=== PATIENT | male | born 1980 | race Caucasian/White ===

== ENCOUNTER 2020-08-15 15:21 | Emergency (ER) | payer OTHER, SELFPAY ==
--- NOTE | 2020-08-15 15:25 | ED.EXTPRO ---
HPI - Extremity Problem General Chief complaint: Extremity Problem,Nontraumatic Stated complaint: infection under fingernail Time Seen by Provider: 08/15/20 15:25 Source: patient and RN notes reviewed Mode of arrival: ambulatory History of Present Illness HPI Narrative: This is a 40-year-old male that presented to urgent care today with redness, swelling in tenderness to the right ring finger. According to patient he was playing basketball with his son's on when his finger went backwards and he notes his fingernail shagged on something. He did go to his employees doctor today who prescribed him with Keflex. He is here to our facility today because he noticed his finger is sore and he types a lot at work. He was wondering if this I needed an I&D. There is no visible fluid at site and the does not warrant an I&D. Instructed the patient to get the prescription refilled, soak the finger and apply A&E ointment to open area on the side of the nailbed. Prescribed patient topical lidocaine to numb the pain. The patient denies SOB, CP, palpitation, extremity numbness, lightheadedness, dizziness, constipation, drainage from site, positive for sensation, pulses present, no apparent intact, diarrhea, chills, or fever. MD Complaint: extremity pain (Right ring finger) Related Data Home Medications Medication Instructions Recorded Confirmed amlodipine 10 mg DAILY 08/15/20 08/15/20 pantoprazole 40 mg PO DAILY 08/15/20 08/15/20 perindopril erbumine 4 mg DAILY 08/15/20 08/15/20 Allergies Allergy/AdvReac Type Severity Reaction Status Date / Time erythromycin base Allergy Unknown Verified 03/11/12 13:36 Review of Systems Review of Systems: Narrative: A 14 organ system Review of Systems was performed and pertinent positives included in the HPI, otherwise remaining ROS is negative. [facility], LAT[facility] Family History Family History (Updated 08/15/20 @ 15:51 by OLIVER Rossi) Other Family history non-contributory Social History Social History Gender identity (if verbalized by the patient): Male Exam Narrative: Exam Narrative: GENERAL: This is a well-nourished, well-developed patient, in no apparent distress. HEAD: normocephalic, atraumatic. EYES: PERRL. Sclera clear/white. Vision is grossly intact. EARS: External ears normal, auditory canals clear and without drainage, TMs normal without perforation. Hearing grossly intact. NOSE: External nose normal with no obvious nasal discharge, nares without redness, no rhinorrhea. THROAT: Mucous membranes moist, posterior pharynx clear. NECK: Neck supple, non-tender without lymphadenopathy, masses or thyromegaly. CARDIOVASCULAR: Regular rate and rhythm without murmurs, gallops, or rubs. RESPIRATORY: Clear to auscultation. Breath sounds equal bilaterally. No wheezes, rales, or rhonchi. GASTROINTESTINAL: Abdomen soft, non-tender, nondistended. Bowel sounds are active. No hepato-splenomegaly, or palpable masses. No guarding. SKIN: warm, intact with no suspicious lesions or rash, good texture and turgor. NEURO: awake, alert, and oriented to person, place and time. There were no obvious focal neurologic abnormalities. Steady gait EXTREMITIES: Normal range of motion. Positive for sensation. Warm to touch, right ring finger erythema with erythematous. No calf tenderness. Negative Homans sign bilaterally. BACK: Nontender without deformity or crepitance. No flank tenderness. Course Vital Signs Vital signs: Vital Signs Temperature 97.7 F 08/15/20 15:34 Pulse Rate 80 08/15/20 15:34 Respiratory Rate 20 08/15/20 15:34 Blood Pressure 141/87 H 08/15/20 15:34 Pulse Oximetry 99 08/15/20 15:34 Temperature 97.7 F 08/15/20 15:34 Pulse Rate 80 08/15/20 15:34 Respiratory Rate 20 08/15/20 15:34 Blood Pressure 141/87 H 08/15/20 15:34 Pulse Oximetry 99 08/15/20 15:34 Discharge Plan Discharge Clinical Impression: Cellulitis Qualifiers: Site of cellulitis: extr
[2020-08-15 15:34] VITALS: BP 141/87; PULSE 80; RESP 20; TEMP 36.5; O2SAT 99
== END 2020-08-15 15:46 | disposition home or self-care (01) ==
LOC: EXPTROY 15:26
PROVIDERS: Emergency Provider Nurse Practitioner; PCP Internal Medicine
DX: L03.011 Cellulitis of right finger (principal)
CPT/HCPCS: 99213; G0463

== ENCOUNTER 2024-02-21 11:03 | Emergency (ER) | payer OTHER, SELFPAY ==
[2024-02-21 11:19] VITALS: BP 135/79; PULSE 91; RESP 18; TEMP 36.8; O2SAT 99
--- NOTE | 2024-02-21 12:14 | ED_ITS ---
HPI - URI/Sore Throat General Chief Complaint: Upper Respiratory Infection Stated Complaint: cough Time Seen by Provider: 02/21/24 12:14 Source: patient, RN notes reviewed and old records reviewed Mode of arrival: ambulatory Limitations: no limitations History of Present Illness HPI Narrative: patient presents with complaints of sinus pain and congestion, cough. He reports that he has been taking amoxicillin per his prescriber's instructions for 3 days. He reports that symptoms are worsening instead of getting better. He states that he did not have visit, prescription was called in for him. He is not sure exactly what is being treated. He does report that he has multiple sick children at home, some with a community-acquired pneumonia. He reports that cough is becoming increasingly productive. He denies any shortness of breath. He has not been taking [id number] medications. No other concerns or complaints at this Related Data Home Medications ?Medication ?Instructions ?Recorded ?Confirmed ?Last Taken ?Type amlodipine 10 mg tablet 10 mg DAILY 08/15/20 08/15/20 Unknown History pantoprazole 40 mg tablet,delayed 40 mg PO DAILY 08/15/20 08/15/20 Unknown History release perindopril erbumine 4 mg tablet 4 mg DAILY 08/15/20 08/15/20 Unknown History amoxicillin 500 mg capsule mg 02/21/24 Unknown History Allergies Allergy/AdvReac Type Severity Reaction Status Date / Time erythromycin base AdvReac Unknown Gastrointestinal Verified 02/21/24 11:35 Upset Review of Systems Review of Systems: All systems reviewed & are unremarkable except as noted in HPI and below Constitutional: Constitutional: Reports no additional constitutional complaints, Reports headache(s) and Reports lethargy ENT: Reports system reviewed and no additional complaints, except as documented, Reports nasal congestion, Reports nasal discharge, Reports sinus pain, Reports sinus pressure and Reports sore throat Cardiovascular: Cardiovascular: Reports no additional cardiovascular complaints Respiratory: Respiratory: Reports no additional respiratory complaints, Reports chest congestion, Reports cough and Reports excessive phlegm production Gastrointestinal: Gastrointestinal: Reports no additional gastrointestinal complaints [facility] Family History Family History (Updated 08/15/20 @ 15:51 by OLIVER Rossi) Other Family history non-contributory Social History Social History Gender identity (if verbalized by the patient): Male Comments At the time of my signature, I reviewed and agree with the nursing past medical, surgical, social, and family history. There is no relevant family history pertinent to the patient complaint. Exam Const: General: cooperative, no acute distress, alert and awake Orientation/consciousness: oriented to person, oriented to place and oriented to time HENMT: Head: normal to inspection Ears: TM abnormal dull bilateral Face/Nose/Sinus: sinus tenderness Mouth: Yes moist mucous membranes Throat: posterior oropharynx abnormal erythema Resp: Effort & Inspection: normal respiratory effort and able to speak in complete sentences Auscultation: clear to auscultation bilaterally, no crackles, no rales, no rhonchi and no wheezes Cardio: Palpation: normal PMI Rate: regular rate Rhythm: regular rhythm Heart sounds: S1 normal heart sound present and S2 normal heart sound present Neuro: General: oriented to person, oriented to place and oriented to time Cranial nerves: Yes CN's II-XII intact bilaterally Psych: Appearance: grossly normal Thought process: Normal thought process present Insight: Good insight present (Psych) Judgement: Good judgement present (Psych) Course Course Level of Care: Express Care Visit Vital Signs Vital signs: Vital Signs Temperature 98.3 F 02/21/24 11:19 Pulse Rate 91 02/21/24 11:19 Respiratory Rate 18 02/21/24 11:19 Blood Pressure 135/79 02/21/24 11:19 Pulse Oximetry 99 02/21/24 11:19 Oxygen Delivery Room Air 02/21/24 11:19 Temperature 98.3 F 02/21/24 11:19 Pulse Rate 91 02/21/24 11:19 Respiratory Rate 18 02/21/24 11:19 Blood Pressure 135/79 02/21/24 11:19 Pulse Oximetry 99 02/21/24 11:19 Oxygen Delivery Room Air 02/21/24 11:19 Reviewed MDM - URI/Sore Throat MDM Narrative Medical decision making narrative: patient with multiple sick contacts at home, getting worse instead of better on amoxicillin. Start doxycycline. Follow with primary care provider. Emergency department for new or worse symptoms. Discharge instructions reviewed with patient, as well as provided in writing per nursing staff. The instructions also include specific and strict return/GO TO THE ER as well as f/u information. All questions have been answered, and the patient deny any further questions with discharge and discharge plan. Some parts of this dictation were generated by voice recognition software and may contain typographical and/or grammatical inaccuracies. Differential Diagnosis Differential diagnosis: Likely upper respiratory infection, otitis media, sinusitis, viral infection, bronchitis and pharyngitis Medical Records Attestation: I reviewed the patient's medical records. Discharge Plan Discharge Clinical Impression: Sinusitis Qualifiers: Sinusitis location: frontal Chronicity: acute Recurrence: not specified as recurrent Qualified Code(s): J01.10 - Acute frontal sinusitis, unspecified Patient Disposition: Home, Self-Care Condition: Stable Instructions: Antibiotic Form, Sinusitis (ED) Additional Instructions: Take medications as prescribed. Follow with primary care provider. Emergency department for any new or worsening symptoms. Stop amoxicillin Patient Language: Chinese Prescriptions: New doxycycline hyclate 100 mg capsule 100 mg PO BID Qty: 20 0RF prednisone 50 mg tablet 50 mg PO DAILY Qty: 5 0RF No Action perindopril erbumine 4 mg tablet 4 mg DAILY amlodipine 10 mg tablet 10 mg DAILY pantoprazole 40 mg tablet,delayed release (DR/EC) 40 mg PO DAILY amoxicillin 500 mg capsule Follow-up/Referrals: UNKNOWN,DOCTOR [Primary Care Provider] -
== END 2024-02-21 12:40 | disposition home or self-care (01) ==
PROVIDERS: Emergency Provider Nurse Practitioner Family
DX: J01.10 Acute frontal sinusitis, unspecified (principal)
CPT/HCPCS: 99213; G0463

== ENCOUNTER 2024-08-22 17:00 | Emergency (ER) | payer OTHER, SELFPAY ==
--- NOTE | 2024-08-22 17:01 | ED_ITS ---
HPI - General Adult General Chief complaint: Chest Pain Stated complaint: heart irritation Time Seen by Provider: 08/22/24 17:01 Source: patient, RN notes reviewed and old records reviewed Mode of arrival: ambulatory Limitations: no limitations History of Present Illness HPI narrative: 44-year-old male presents to the [facility] with concerns for his heart racing, skipping a beat with associated shortness of breath. Patient has history of high blood pressure and high cholesterol. Patient reports that he was sitting in [place] and symptoms started approximately 20 minutes prior to arrival Denies any vomiting. Denies nausea. Denies any new anxiety. Onset (ago): minute(s) (20) Treatments prior to arrival: none Related Data Home Medications ?Medication ?Instructions ?Recorded ?Confirmed ?Last Taken ?Type amlodipine 10 mg tablet 10 mg DAILY 08/15/20 08/15/20 Unknown History perindopril erbumine 4 mg tablet 4 mg DAILY 08/15/20 08/15/20 Unknown History rosuvastatin 10 mg tablet mg 08/22/24 Unknown History Allergies Allergy/AdvReac Type Severity Reaction Status Date / Time azithromycin AdvReac Mild Nausea and Verified 08/22/24 17:42 Vomiting erythromycin base AdvReac Unknown Gastrointestinal Verified 08/22/24 17:42 Upset Review of Systems Review of Systems: All systems reviewed & are unremarkable except as noted in HPI and below Constitutional: Constitutional: Reports no additional constitutional complaints ENT: Reports system reviewed and no additional complaints, except as documented Cardiovascular: Cardiovascular: Reports as per HPI, Denies chest pain, Reports diaphoresis, Reports rapid heart rate, Denies leg edema, Denies radiating jaw, neck or arm pain, Reports palpitations and Reports dyspnea Respiratory: Respiratory: Reports as per HPI, Denies chest congestion, Denies cough and Reports dyspnea Musculoskeletal: Musculoskeletal: Reports no additional musculoskeletal complaints Integumentary/Breasts: Skin/Breast: Reports system reviewed and no additional complaints, except as docu [facility] Past Medical History Medical History (Updated 08/22/24 @ 19:05 by Иван Carrasco MD) History of high cholesterol History of high blood pressure Family History Family History Other Family history non-contributory Social History Social History Gender identity (if verbalized by the patient): Male Comments At the time of my signature, I reviewed and agree with the nursing past medical, surgical, social, and family history. There is no relevant family history pertinent to the patient complaint. Exam Const: General: cooperative, healthy appearing, comfortable, no acute distress, well developed, alert and well nourished Nutritional Appearance: well nourished Orientation/consciousness: patient oriented x3 Limitations: no limitations HENMT: Head: normal to inspection Mouth: Yes Normal oral and palatal mucosa present, Yes lip normal, Yes tongue normal and Yes moist mucous membranes Eyes: General: appearance normal, both eyes and all related structures Alignment and Position: alignment normal Neck: Neck: normal visual inspection, full ROM, no lymphadenopathy and no meningeal signs Chest: Chest palpation & inspection: normal inspection of the chest Resp: Effort & Inspection: normal respiratory effort and able to speak in complete sentences Auscultation: clear to auscultation bilaterally, no crackles, no rales, no rhonchi and no wheezes Cardio: Rate: tachycardic Skin: General skin exam: normal color and no rashes or lesions noted Neuro: General: patient oriented x3, gait normal, moves all extremities and no meningeal signs Cognition (Neuro): normal cognition Speech: normal speech Gait exam (Neuro): Normal gait present Extrem: General: normal to inspection, full ROM, capillary refill normal and normal gait Psych: Appearance: grossly normal and well kempt Mental Status: mental status grossly normal Speech and movement: Normal speech and movement present and Clear speech present Affect: normal affect Attitude: cooperative Course Course Level of Care: Express Care Visit Vital Signs Vital signs: Vital Signs Temperature 97.8 F 08/22/24 17:09 Pulse Rate 101 H 08/22/24 17:09 Respiratory Rate 18 08/22/24 17:09 Blood Pressure 160/95 H 08/22/24 17:09 Pulse Oximetry 98 08/22/24 17:09 Oxygen Delivery Room Air 08/22/24 17:09 Temperature 97.8 F 08/22/24 17:09 Pulse Rate 101 H 08/22/24 17:09 Respiratory Rate 18 08/22/24 17:09 Blood Pressure 160/95 H 08/22/24 17:09 Pulse Oximetry 98 08/22/24 17:09 Oxygen Delivery Room Air 08/22/24 17:09 Reviewed Transfer Transfered to: [facility] Transportation: Other (POV, patient declined EMS) Transfer rationale: Patient with elevated heart rate, states it feels like it is racing with skipping beats. Patient is tachycardic in clinic Patient has a history of high blood pressure, high cholesterol Sending for higher level of care Accepting physician: Spoke with Dr. [place] Medical Decision Making MDM Narrative Medical decision making narrative: Patient presents with 20 minutes of heart racing, skipping beats, mildly diaphoretic. EKG sinus sinus tach. Blood glucose 108 Sending patient for further evaluation, testing and treatment Transfer instructions reviewed with patient and to go to the ER. EMS offered, patient declined, will drive All questions have been answered, and the patient deny any further questions. Some parts of this dictation were generated by voice recognition software and may contain typographical and/or grammatical inaccuracies. Differential Diagnosis Differential Diagnosis: Acute coronary syndrome, SVT, AFib, cardiac event, anxiety Medical Records Medical records reviewed: Yes I reviewed the external patient's medical records. Vital Signs Vital Signs: Vital Signs Temperature 97.8 F 08/22/24 17:09 Pulse Rate 101 H 08/22/24 17:09 Respiratory Rate 18 08/22/24 17:09 Blood Pressure 160/95 H 08/22/24 17:09 Pulse Oximetry 98 08/22/24 17:09 Oxygen Delivery Room Air 08/22/24 17:09 Temperature 97.8 F 08/22/24 17:09 Pulse Rate 101 H 08/22/24 17:09 Respiratory Rate 18 08/22/24 17:09 Blood Pressure 160/95 H 08/22/24 17:09 Pulse Oximetry 98 08/22/24 17:09 Oxygen Delivery Room Air 08/22/24 17:09 Reviewed Lab Data Lab results reviewed: Yes I reviewed the patient's lab results. Labs: Lab Results 08/22/24 Range/Units 17:11 POC Capillary Glucose 108 H (65-105) mg/dl Reviewed ECG Data EKG #1: Attestation: I personally reviewed and interpreted this ECG as follows: ECG completion date: 08/22/24 ECG completion time: 17:06 Prior ECG tracings: not available for review Interpretation: Sinus tachycardia, possible left atrial enlargement abnormal EKG, no ST elevation or depression noted. Ventricle rate 104, GA interval 140, QRS duration 107 Critical Care Time Critical Care Time Critical Care Time: No Discharge Plan Discharge Clinical Impression: Tachycardia, Shortness of breath Patient Disposition: Acute Care Hospital Condition: Stable Patient Language: Ug[place]an Prescriptions: No Action perindopril erbumine 4 mg tablet 4 mg DAILY amlodipine 10 mg tablet 10 mg DAILY rosuvastatin 10 mg tablet Follow-up/Referrals: UNKNOWN,DOCTOR [Primary Care Provider] -
--- NOTE | 2024-08-22 17:02 | ECG_ITS ---
Test Date: 2024-08-22 17:06:29 Measurements Intervals [place] Rate: 104 P: 33 [place]: 140 QRS: 23 QRSD: 107 T: 9 QT: 341 QTc: 450 Interpretive Statements SINUS TACHYCARDIA POSSIBLE LEFT ATRIAL ENLARGEMENT INCOMPLETE RIGHT BUNDLE BRANCH BLOCK CONSIDER INFERIOR INFARCT, AGE INDETERMINATE BASELINE ARTIFACT- I, II, III, AVR, AVL, AVF ABNORMAL ECG No previous ECG available for comparison Electronically Signed On 08-22-2024 20:23:47 CDT by Viet Rankin D.O.
[2024-08-22 17:09] VITALS: BP 160/95; PULSE 101; RESP 18; TEMP 36.6; O2SAT 98
[2024-08-22 17:13] LABS: Glucose Point of Care 108 mg/dl (65-105)
== END 2024-08-22 17:15 | disposition short-term general hospital (02) ==
PROVIDERS: Emergency Provider Nurse Practitioner
DX: R00.0 Tachycardia, unspecified (principal); R06.02 Shortness of breath; I10 Essential (primary) hypertension; E78.00 Pure hypercholesterolemia, unspecified
CPT/HCPCS: 82948; 93005; 99213; G0463

== ENCOUNTER 2024-08-22 17:28 | Emergency (ER) | payer OTHER, SELFPAY ==
[2024-08-22] VITALS (31 sets, daily range): BP systolic 120–165; BP diastolic 83–104; PULSE 67–99; RESP 14–22; TEMP 36.4–36.7; O2SAT 95–98
--- NOTE | 2024-08-22 17:47 | ECG_ITS ---
Test Date: 2024-08-22 18:08:17 Measurements Intervals [place] Rate: 77 P: 35 [place]: 182 QRS: 4 QRSD: 100 T: 0 QT: 383 QTc: 434 Interpretive Statements SINUS RHYTHM WITH OCCASIONAL SUPRAVENTRICULAR PREMATURE COMPLEXES POSSIBLE LEFT ATRIAL ENLARGEMENT BORDERLINE ST-T WAVE ABNORMALITY- INFERIOR LEADS BORDERLINE ECG Compared to ECG 08/22/2024 17:06:29 HEART RATE HAS DECREASED Electronically Signed On 08-22-2024 20:19:00 CDT by Viet Rankin D.O.
--- NOTE | 2024-08-22 18:03 | ED_ITS ---
HPI - General Adult General Chief complaint: Arrhythmia/Palpitations <Иван Carrasco MD - Last Filed: 08/22/24 19:05> Stated complaint: fast HR <Иван Carrasco MD - Last Filed: 08/22/24 19:05> Time Seen by Provider: 08/22/24 17:41 <Иван Carrasco MD - Last Filed: 08/22/24 19:05> History of Present Illness HPI narrative: This is a 44-year-old male presenting ED with chief complaint of palpitations. Patient was sitting in [facility] at 4:40 p.m. when he felt like his heart was skipping a beat. It would then speed up and go fast. During the episode he became short of breath. He did not have any chest pain. Symptoms resolved without intervention. On his watch said that his heart rate got up to 150 beats per minute. He is currently symptom free. Patient states that he drove from [place] straight through last week. He developed swelling of his left leg that resolved on its own. No history of PE or DVT. <Иван Carrasco MD - Last Filed: 08/22/24 19:05> Related Data Home medications: Home Medications ?Medication ?Instructions ?Recorded ?Confirmed ?Last Taken ?Type amlodipine 10 mg tablet 10 mg DAILY 08/15/20 08/15/20 Unknown History perindopril erbumine 4 mg tablet 4 mg DAILY 08/15/20 08/15/20 Unknown History rosuvastatin 10 mg tablet mg 08/22/24 Unknown History <Иван Carrasco MD - Last Filed: 08/22/24 19:05> Allergies/adverse reactions: Allergies Allergy/AdvReac Type Severity Reaction Status Date / Time azithromycin AdvReac Mild Nausea and Verified 08/22/24 17:42 Vomiting erythromycin base AdvReac Unknown Gastrointestinal Verified 08/22/24 17:42 Upset <Иван Carrasco MD - Last Filed: 08/22/24 19:05> [facility] Past Medical History Medical History: Medical History (Updated 08/22/24 @ 19:05 by Иван Carrasco MD) History of high cholesterol History of high blood pressure <Иван Carrasco MD - Last Filed: 08/22/24 19:05> Family History Family History: Family History Other Family history non-contributory <Иван Carrasco MD - Last Filed: 08/22/24 19:05> Social History Social History: Social History Gender identity (if verbalized by the patient): Male <Иван Carrasco MD - Last Filed: 08/22/24 19:05> Exam 2 Narrative: APPEARANCE: No apparent distress. Head: atraumatic. EYES: EOMI, NOSE: Atraumatic NECK: Trachea midline RESPIRATORY: No increased rate of breathing clear to auscultation CARDIOVASCULAR: RRR, no peripheral edema ABDOMINAL: Non-distended soft nontender MUSCULOSKELETAl: No obvious deformities NEURO: Alert. Moving 4/4 extremities SKIN:: Warm, dry. Normal color PSYCHIATRIC: Normal affect <Иван Carrasco MD - Last Filed: 08/22/24 19:05> Course Vital Signs Vital signs: Vital Signs Temperature 36.4 C L 08/22/24 17:34 Pulse Rate 99 08/22/24 17:34 Respiratory Rate 20 08/22/24 17:34 Blood Pressure 165/104 H 08/22/24 17:34 Pulse Oximetry 98 08/22/24 17:34 Oxygen Delivery Room Air 08/22/24 17:34 Temperature 36.7 C 08/22/24 17:39 Pulse Rate 71 08/22/24 19:55 Respiratory Rate 18 08/22/24 19:55 Blood Pressure 142/85 H 08/22/24 19:55 Pulse Oximetry 96 08/22/24 19:55 Oxygen Delivery Room Air 08/22/24 17:39 <Иван Carrasco MD - Last Filed: 08/22/24 19:05> Vital Signs Temperature 36.4 C L 08/22/24 17:34 Pulse Rate 99 08/22/24 17:34 Respiratory Rate 20 08/22/24 17:34 Blood Pressure 165/104 H 08/22/24 17:34 Pulse Oximetry 98 08/22/24 17:34 Oxygen Delivery Room Air 08/22/24 17:34 Temperature 36.7 C 08/22/24 17:39 Pulse Rate 71 08/22/24 19:55 Respiratory Rate 18 08/22/24 19:55 Blood Pressure 142/85 H 08/22/24 19:55 Pulse Oximetry 96 08/22/24 19:55 Oxygen Delivery Room Air 08/22/24 17:39 <Jose Roman MD - Last Filed: 08/22/24 22:02> Medical Decision Making MDM Narrative Medical decision making narrative: -Course: 44-year-old male presenting with palpitations. EKG here shows normal sinus rhythm with no ischemic changes. Initial troponin negative. BNP and D-dimer within normal limits. Chest x-ray unremarkable. Patient has been signed out to the oncoming physician pending repeat troponin. If that troponin is negative he can be safely discharged to follow-up with a neurological physiotherapist. Given return precautions. -DDX includes but is not limited to: Dysrhythmia, anxiety, ACS <Иван Carrasco MD - Last Filed: 08/22/24 19:05> -Course: 44-year-old male presenting with palpitations. EKG here shows normal sinus rhythm with no ischemic changes. Initial troponin negative. BNP and D-dimer within normal limits. Chest x-ray unremarkable. Patient has been signed out to the oncoming physician pending repeat troponin. If that troponin is negative he can be safely discharged to follow-up with a neurological physiotherapist. Given return precautions. -DDX includes but is not limited to: Dysrhythmia, anxiety, ACS Repeat troponin was negative Patient be discharged home <Jose Roman MD - Last Filed: 08/22/24 22:02> Vital Signs Vital Signs: Vital Signs Temperature 36.4 C L 08/22/24 17:34 Pulse Rate 99 08/22/24 17:34 Respiratory Rate 20 08/22/24 17:34 Blood Pressure 165/104 H 08/22/24 17:34 Pulse Oximetry 98 08/22/24 17:34 Oxygen Delivery Room Air 08/22/24 17:34 Temperature 36.7 C 08/22/24 17:39 Pulse Rate 71 08/22/24 19:55 Respiratory Rate 18 08/22/24 19:55 Blood Pressure 142/85 H 08/22/24 19:55 Pulse Oximetry 96 08/22/24 19:55 Oxygen Delivery Room Air 08/22/24 17:39 <Иван Carrasco MD - Last Filed: 08/22/24 19:05> Vital Signs Temperature 36.4 C L 08/22/24 17:34 Pulse Rate 99 08/22/24 17:34 Respiratory Rate 20 08/22/24 17:34 Blood Pressure 165/104 H 08/22/24 17:34 Pulse Oximetry 98 08/22/24 17:34 Oxygen Delivery Room Air 08/22/24 17:34 Temperature 36.7 C 08/22/24 17:39 Pulse Rate 71 08/22/24 19:55 Respiratory Rate 18 08/22/24 19:55 Blood Pressure 142/85 H 08/22/24 19:55 Pulse Oximetry 96 08/22/24 19:55 Oxygen Delivery Room Air 08/22/24 17:39 <Jose Roman MD - Last Filed: 08/22/24 22:02> Lab Data Result diagrams: 08/22/24 18:03 08/22/24 18:03 <Иван Carrasco MD - Last Filed: 08/22/24 19:05> Labs: Lab Results 08/22/24 08/22/24 08/22/24 Range/Units 18:03 19:12 20:54 WBC 8.8 (4.5-10.0) K/mm3 RBC 5.45 (4.6-6.20) M/mm3 Hgb 16.0 (14.0-18.0) g/dL Hct 46.4 (42.0-52.0) % MCV 85.1 (80-100) fl MCH 29.4 (26-34) pg MCHC 34.5 (32-36) g/dl RDW 12.0 (11.5-14.5) % Plt Count 213 (150-375) k/mm3 MPV 9.9 (7.4-10.4) fl Immature Gran % (Auto) 0.3 (0-0.5) % Neut % (Auto) 55.9 (45.5-73.1) % Lymph % (Auto) 32.0 (18.3-44.2) % [place] % (Auto) 8.4 (2.6-8.5) % Eos % (Auto) 2.8 (0-4.4) % Baso % (Auto) 0.6 (0.2-1.2) % Lymph # (Auto) 2.83 (0.9-3.2) K/mm3 [place] # (Auto) 0.7 H (0.1-0.6) K/mm3 Eos # (Auto) 0.3 (0-0.3) K/mm3 Baso # (Auto) 0.1 (0.0-0.1) K/mm3 Abs Immat Gran (auto) 0.03 (0.00-0.031) K/mm3 Absolute Neuts (auto) 4.9 (1.3-6.7) K/mm3 Absolute Nucleated RBC 0.000 (0.0-0.012) K/mm3 Nucleated RBC % 0.0 (0.0-0.2) % D-Dimer 0.28 (<0.48) ug/mL Sodium 139 (137-145) mmol/L Potassium 3.9 (3.4-5.0) mmol/L Chloride 103 (98-107) mmol/L Carbon Dioxide 24 (22-30) mmol/L Anion Gap 12 (4-12) mmol/L BUN 15 (9-20) mg/dL Creatinine 0.86 (0.7-1.3) mg/dL Estim Creat Clear Calc 123 ml/min Estimated GFR > 60 (59 - ) Glucose 100 (65-110) mg/dL Calcium 9.4 (8.4-10.2) mg/dL Total Bilirubin 0.5 (0.2-1.3) mg/dL AST 39 (17-59) U/L ALT 54 H (6-50) U/L Alkaline Phosphatase 96 (38-126) U/L Troponin I < 0.012 < 0.012 (0.000-0.034) ng/mL NT-Pro-B Natriuret Pep 30 (19.9-100) pg/mL Total Protein 7.7 (6.3-8.2) g/dL Albumin 4.6 (3.5-5.1) g/dL TSH (Reflex) 3.410 (0.465-4.68) uIU/mL Urine Opiates Screen Negative (Negative) Urine Methadone Screen Negative (Negative) Ur Barbiturates Screen Negative (Negative) Ur Phencyclidine Scrn Negative (Negative) Ur Amphetamine Screen Negative (Negative) U Benzodiazepines Scrn Negative (Negative) Urine Cocaine Screen Negative (Negative) U Cannabinoids Screen Negative (Negative) <Иван Carrasco MD - Last Filed: 08/22/24 19:05> Lab Results 08/22/24 08/22/24 08/22/24 Range/Units 18:03 19:12 20:54 WBC 8.8 (4.5-10.0) K/mm3 RBC 5.45 (4.6-6.20) M/mm3 Hgb 16.0 (14.0-18.0) g/dL Hct 46.4 (42.0-52.0) % MCV 85.1 (80-100) fl MCH 29.4 (26-34) pg MCHC 34.5 (32-36) g/dl RDW 12.0 (11.5-14.5) % Plt Count 213 (150-375) k/mm3 MPV 9.9 (7.4-10.4) fl Immature Gran % (Auto) 0.3 (0-0.5) % Neut % (Auto) 55.9 (45.5-73.1) % Lymph % (Auto) 32.0 (18.3-44.2) % [place] % (Auto) 8.4 (2.6-8.5) % Eos % (Auto) 2.8 (0-4.4) % Baso % (Auto) 0.6 (0.2-1.2) % Lymph # (Auto) 2.83 (0.9-3.2) K/mm3 [place] # (Auto) 0.7 H (0.1-0.6) K/mm3 Eos # (Auto) 0.3 (0-0.3) K/mm3 Baso # (Auto) 0.1 (0.0-0.1) K/mm3 Abs Immat Gran (auto) 0.03 (0.00-0.031) K/mm3 Absolute Neuts (auto) 4.9 (1.3-6.7) K/mm3 Absolute Nucleated RBC 0.000 (0.0-0.012) K/mm3 Nucleated RBC % 0.0 (0.0-0.2) % D-Dimer 0.28 (<0.48) ug/mL Sodium 139 (137-145) mmol/L Potassium 3.9 (3.4-5.0) mmol/L Chloride 103 (98-107) mmol/L Carbon Dioxide 24 (22-30) mmol/L Anion Gap 12 (4-12) mmol/L BUN 15 (9-20) mg/dL Creatinine 0.86 (0.7-1.3) mg/dL Estim Creat Clear Calc 123 ml/min Estimated GFR > 60 (59 - ) Glucose 100 (65-110) mg/dL Calcium 9.4 (8.4-10.2) mg/dL Total Bilirubin 0.5 (0.2-1.3) mg/dL AST 39 (17-59) U/L ALT 54 H (6-50) U/L Alkaline Phosphatase 96 (38-126) U/L Troponin I < 0.012 < 0.012 (0.000-0.034) ng/mL NT-Pro-B Natriuret Pep 30 (19.9-100) pg/mL Total Protein 7.7 (6.3-8.2) g/dL Albumin 4.6 (3.5-5.1) g/dL TSH (Reflex) 3.410 (0.465-4.68) uIU/mL Urine Opiates Screen Negative (Negative) Urine Methadone Screen Negative (Negative) Ur Barbiturates Screen Negative (Negative) Ur Phencyclidine Scrn Negative (Negative) Ur Amphetamine Screen Negative (Negative) U Benzodiazepines Scrn Negative (Negative) Urine Cocaine Screen Negative (Negative) U Cannabinoids Screen Negative (Negative) <Jose Roman MD - Last Filed: 08/22/24 22:02> Discharge Plan Discharge Clinical Impression: Heart palpitations <Иван Carrasco MD - Last Filed: 08/22/24 19:05> Patient Disposition: Home <Иван Carrasco MD - Last Filed: 08/22/24 19:05> Condition: Stable <Иван Carrasco MD - Last Filed: 08/22/24 19:05> Instructions: Antibiotic Form, Heart Palpitations (DC) <Иван Carrasco MD - Last Filed: 08/22/24 19:05> Additional Instructions: You were seen in the emergency department for palpitations. Your workup here was reassuring. Please follow-up with the neurological physiotherapist listed below for further management. If you develop palpitations fainting or chest pain please return to ED for re-evaluation. <Иван Carrasco MD - Last Filed: 08/22/24 19:05> Patient Language: Latvian <Иван Carrasco MD - Last Filed: 08/22/24 19:05> Prescriptions: No Action perindopril erbumine 4 mg tablet 4 mg DAILY amlodipine 10 mg tablet 10 mg DAILY rosuvastatin 10 mg tablet <Иван Carrasco MD - Last Filed: 08/22/24 19:05> Follow-up/Referrals: Viet Rankin DO [Physician] - 1 Week (Palpitations ) UNKNOWN,DOCTOR [Primary Care Provider] - <Иван Carrasco MD - Last Filed: 08/22/24 19:05> Time of Disposition: 21:59 <Иван Carrasco MD - Last Filed: 08/22/24 19:05> 21:59 <Jose Roman MD - Last Filed: 08/22/24 22:02>
[2024-08-22 18:15] LABS: Basophils Absolute Auto 0.1 K/mm3 (0.0-0.1); Basophils Percent Auto 0.6 % (0.2-1.2); Eosinophils Absolute Auto 0.3 K/mm3 (0-0.3); Eosinophils Percent Auto 2.8 % (0-4.4); Hematocrit 46.4 % (42.0-52.0); Immature Granulocyte Absolute 0.03 K/mm3 (0.00-0.031); Immature Granulocyte Percent A 0.3 % (0-0.5); Lymphocytes Absolute Auto 2.83 K/mm3 (0.9-3.2); Mean Corpuscular HGB Conc 34.5 g/dl (32-36); Mean Corpuscular Hemoglobin 29.4 pg (26-34); Mean Corpuscular Volume 85.1 fl (80-100); Mean Platelet Volume 9.9 fl (7.4-10.4); Monocytes Absolute Auto 0.7 K/mm3 (0.1-0.6); Monocytes Percent Auto 8.4 % (2.6-8.5); Neutrophils Absolute Auto 4.9 K/mm3 (1.3-6.7); Neutrophils Percent Auto 55.9 % (45.5-73.1); Platelet Count Result 213 k/mm3 (150-375); Red Blood Count 5.45 M/mm3 (4.6-6.20); White Blood Count 8.8 K/mm3 (4.5-10.0)
[2024-08-22 18:33] LABS: Alanine Aminotransferase 54 U/L (6-50); Albumin Level 4.6 g/dL (3.5-5.1); Alkaline Phosphatase 96 U/L (38-126); Anion Gap 12 mmol/L (4-12); Aspartate Amino Transferase 39 U/L (17-59); Bilirubin,Total 0.5 mg/dL (0.2-1.3); Blood Urea Nitrogen 15 mg/dL (9-20); Calcium 9.4 mg/dL (8.4-10.2); Carbon Dioxide 24 mmol/L (22-30); Chloride 103 mmol/L (98-107); D Dimer 0.28 ug/mL (<0.48); Estimated CRCL calculation 123 ml/min; Estimated Glomerular Filt Rate > 60; Glucose 100 mg/dL (65-110); Potassium 3.9 mmol/L (3.4-5.0); Sodium 139 mmol/L (137-145); Total Protein 7.7 g/dL (6.3-8.2)
[2024-08-22 18:47] LABS: NT Pro B Type Natriuretic Pept 30 pg/mL (19.9-100); Troponin I < 0.012 ng/mL (0.000-0.034)
--- NOTE | 2024-08-22 19:17 | PC.NURSE ---
Report received from HIGINIO Strong. Assumed care of patient at this time.
[2024-08-22 19:33] LABS: Amphetamine Screen Urine Negative (Negative); Barbiturate Screen Urine Negative (Negative); Benzodiazepines Screen Urine Negative (Negative); Cannabinoid Screen Urine Negative (Negative); Cocaine Screen Urine Negative (Negative); Methadone Screen Urine Negative (Negative); Opiate Screen Urine Negative (Negative); Phencyclidine Screen Urine Negative (Negative)
--- NOTE | 2024-08-22 21:03 | ECG_ITS ---
Test Date: 2024-08-22 20:21:41 Measurements Intervals [place] Rate: 69 P: 37 ME: 186 QRS: 7 QRSD: 98 T: -4 QT: 385 QTc: 415 Interpretive Statements SINUS RHYTHM POSSIBLE LEFT ATRIAL ENLARGEMENT BORDERLINE ST-T WAVE ABNORMALITY- INFERIOR LEADS BORDERLINE ECG Compared to ECG 08/22/2024 18:08:17 No significant changes Electronically Signed On 08-23-2024 07:03:57 CDT by Viet Rankin D.O.
[2024-08-22 21:25] LABS: Troponin I < 0.012 ng/mL (0.000-0.034)
== END 2024-08-22 22:10 | disposition home or self-care (01) ==
PROVIDERS: Emergency Provider Emergency Medicine
DX: R00.2 Palpitations (principal); E78.00 Pure hypercholesterolemia, unspecified; I10 Essential (primary) hypertension; Z79.899 Other long term (current) drug therapy
CPT/HCPCS: 36415; 80053; 80307; 83880; 84443; 84484; 85025; 85380; 93005; 99284